=== PATIENT | male | born 1965 | race Caucasian/White ===

== ENCOUNTER 2019-08-02 08:29 | Day surgery (SDC) | payer BC, SELFPAY ==
[2019-08-02 08:54] VITALS: BMI 32.1
[2019-08-02 08:59] VITALS: BP 122/76; PULSE 74; RESP 12; TEMP 37; O2SAT 96
[2019-08-02] MEDS: SODIUM CHLORIDE 0.9% 1,000 ML 200 ML IV (09:09)
--- NOTE | 2019-08-02 09:41 | PM.HP.1 ---
History of Present Illness History of Present Illness Date Patient Seen: 08/02/19 Time Patient Seen: 09:41 Chief complaint: [id number] Narrative: The patient is a gentleman here for a screening colonoscopy. His last exam was 5 years ago. His personal history of polyps. Patient History Medical History Hyperlipidemia (Acute) Surgical History H/O umbilical hernia repair (Acute) History of appendectomy (Acute) Family & Social History Social History: household members spouse Tobacco & Substance use: Smoking Status Never smoker alcohol intake current alcohol intake frequency 0-2 drinks per day Substance Use Type does not use Meds Home Medications and Allergies Home Medications Medication Instructions Recorded Confirmed Type No Known Home Medications 08/02/19 08/02/19 History Allergies Allergy/AdvReac Type Severity Reaction Status Date / Time oxycodone AdvReac Severe ITCHING Verified 08/02/19 08:52 Review of Systems Review of Systems ROS: Yes All systems reviewed with the patient and are negative except as otherwise documented Exam Vital Signs (past 8 hours): - 08/02/19 08:59 Temperature 98.6 F Pulse Rate 74 Respiratory Rate 12 Blood Pressure 122/76 Pulse Oximetry 96 Oxygen Delivery Method Room Air Narrative Exam Narrative: Pleasant cooperative patient no apparent distress. Lungs are clear to auscultation. No rales or rhonchi. Heart regular rate and rhythm no murmur gallop. Abdomen is soft nontender without mass. No obvious hernias. Patient is alert and oriented x3. Assessment & Plan Assessment & Plan narrative: The patient for a screening colonoscopy. I have discussed the procedure with them. Risks of bleeding, perforation which would necessitate major operation, failure to find remove all lesions, the potential tattoo were all discussed. All questions were answered. They wished to proceed.
--- NOTE | 2019-08-02 09:49 | PM.PREOP ---
Pre-operative Note Interval Note History & Physical reviewed/Exam performed by Physician: Yes Changes to H&P: No ASA Class (for procedural sedation): I
[2019-08-02] MEDS: fentaNYL 250 MCG/5 ML INJ IV (10:21)
[2019-08-02] MEDS: MIDAZOLAM 5 MG/5 ML VIAL IV (10:21)
--- NOTE | 2019-08-02 10:26 | PM.OP.ENDO ---
Operative Date/Time/Diagnoses Date of procedure: 08/02/19 Time of procedure: 10:26 Pre-op diagnosis: Screening exam. Last exam 7 years ago. Per still history of polyps Post-op diagnosis: same (Sigmoid diverticulosis) Procedure & Clinicians Study performed: Colonoscopy Same procedure as scheduled: Yes Indications: Screening Surgeon: Kaz Lawrence Procedure Notes SCOAP/Timeout: Performed Procedure in detail: The patient was placed in the left lateral decubitus position and underwent IV sedation directed by the surgeon consisting of fentanyl and Versed. Digital exam was remarkable for mild narrowing. Prostate is normal.. The scope was inserted and advanced through the rectum into the sigmoid, descending, transverse, and ascending colon. I noted a few scattered sigmoid diverticuli. The cecum was reached identified by the ileocecal valve and the appendiceal opening. The ileocecal valve was successfully cannulated. The terminal ileum was normal in appearance. The scope was gradually brought out. No Polyps were found. The scope ultimately was retroflexed in the rectum. The appearance was remarkable for hemorrhoids without ulceration. The scope was removed and the patient tolerated the procedure well. The prep was very good Scope withdrawal time: 7 minutes Sedation minutes: 22 Findings: diverticulosis and internal hemorrhoids Specimen(s): none sent Complications: none Post-procedure Recommendations: Colonscopy in 5 years (Due to history of polyps) Follow up: as needed Disposition: PACU
[2019-08-02 10:30] VITALS: BP 126/71; PULSE 96; RESP 18; TEMP 36.7; O2SAT 96
[2019-08-02 10:35] VITALS: PULSE 85; RESP 12; O2SAT 97
[2019-08-02 10:36] VITALS: BP 111/77
[2019-08-02 10:39] VITALS: BP 127/75; PULSE 81; RESP 12; O2SAT 97
[2019-08-02 10:44] VITALS: BP 117/83; PULSE 78; RESP 15; TEMP 36.8; O2SAT 98
== END 2019-08-02 11:00 | disposition home or self-care (01) ==
PROVIDERS: Referring Provider Specialist; Visit Provider Specialist
PROC: 0DJD8ZZ Inspection of Lower Intestinal Tract, Via Natural or Artificial Opening Endoscopic (ICD-10-PCS; CPT 45378; principal; 2019-08-02 09:45)
DX: Z12.11 Encounter for screening for malignant neoplasm of colon (principal); Z86.010 Personal history of colon polyps; K57.30 Diverticulosis of large intestine without perforation or abscess without bleeding; K64.8 Other hemorrhoids
CPT/HCPCS: 45378; 99152; J2250; J3010

== ENCOUNTER → 2024-04-11 15:40 | Outpatient (CLI) | payer BC, SELFPAY ==
--- NOTE | 2024-04-11 15:46 | DI.RAD.S_ITS ---
PROCEDURE: XR CALCANEOUS RT MIN 2V INDICATIONS: Achilles tendinitis, right leg TECHNIQUE: Spurring of the dorsal COMPARISON: May represent a remote avulsion fracture. FINDINGS: Bones: There is a 5 mm calcification posterior to the talus which may represent an old avulsion fracture. Small spur projects from the dorsal cortex of the talar neck. There is also spur from the anterior tibial plafond. This may predispose to anterior impingement ankle dorsiflexion Soft tissues: Mild plantar soft tissue swelling noted over the calcaneus IMPRESSION: Chronic findings as described Dictated by: Cliff Herrera M.D. on 04/12/2024 at 12:04 Approved by: Cliff Herrera M.D. on 04/12/2024 at 12:07
== END ==
PROVIDERS: Referring Provider Family Medicine; Visit Provider Family Medicine
DX: M76.61 Achilles tendinitis, right leg (principal)
CPT/HCPCS: 73650

== ENCOUNTER → 2024-05-09 18:44 | Outpatient (CLI) | payer BC, SELFPAY ==
--- NOTE | 2024-05-09 | DI.MRI.S_ITS ---
PROCEDURE: MR ANKLE RT WO CON INDICATIONS: RT ACHILLES TENDINITIS,INT DERANGEMENT LT KNEE TECHNIQUE: Noncontrast sagittal T1 spin echo and T2 fast spin echo with fat saturation, axial proton density fast spin echo and T2 fast spin echo with fat saturation, coronal T1 spin echo and T2 fast spin echo with fat saturation through the ankle/hindfoot. COMPARISON: [facility], CR, XR CALCANEOUS RT MIN 2V, 04/11/2024, 15:52. FINDINGS: Image quality: Excellent Tendons: Mild tenosynovitis of the posterior tibialis, and the flexor digitorum longus. The flexor hallucis longus tendon is unremarkable. The extensor tendons, are unremarkable. Longitudinal split tear of the peroneal brevis. The peroneal longus is unremarkable. Mild tendinosis of the distal Achilles tendon, with low grade interstitial tear at the lateral aspect of the calcaneus insertion. Mild soft tissue edema posterior to the distal Achilles tendon. No full-thickness rupture of the distal Achilles tendon. Ligaments: The anterior and the posterior tibiofibular ligament are intact. Partial-thickness tear of the anterior talofibular ligament, about the fibular insertion. The posterior talofibular ligament is intact. Prior sprain the calcaneofibular ligament. Mild sprain of the deep portion of the deltoid ligament. Sinus tarsi: No fibrosis Plantar fascia: Mild thickening of the central cord, suggestive of mild plantar fasciitis. Muscles: Normal in signal Bones: Mild chondral irregularity with underlying minimal subchondral marrow edema in the lateral talus dome, likely secondary to mild degenerative changes of the tibiotalar joint. No significant tibiotalar or posterior subtalar effusion. IMPRESSION: 1. Longitudinal split tear of the peroneal brevis. 2. Mild tendinosis of the distal Achilles tendon with low grade interstitial tear at the lateral aspect of the calcaneal insertion. 3. Partial-thickness tear of the anterior talofibular ligament. Additional prior sprain of the medial and lateral ankle ligaments. 4. Findings suggestive of mild plantar fasciitis. 5. Mild degenerative change of the tibiotalar joint with minimal subchondral marrow edema. Dictated by: Raina Smith M.D. on 05/11/2024 at 10:14 Approved by: Raina Smith M.D. on 05/11/2024 at 10:22
--- NOTE | 2024-05-09 | DI.MRI.S_ITS ---
PROCEDURE: MR KNEE LT WO CON INDICATIONS: RT ACHILLES TENDINITIS,INT DERANGEMENT LT KNEE TECHNIQUE: Noncontrast sagittal PD fast spin echo and T2 fast spin echo with fat saturation, sagittal 3-D FLASH with fat saturation; coronal T1 spin echo and PD fast spin echo with fat saturation, and axial PD fast spin echo with fat saturation through the knee. COMPARISON: [facility], MR, MR KNEE LEFT WITHOUT CONTRAST, 05/03/2023, 16:53. [facility], CR, XR KNEE 3 VIEWS LEFT, 02/27/2023, 15:57. FINDINGS: Image quality: Excellent. Bones: Mild marrow edema and subchondral cyst formation is present at the anterior and mid weight-bearing medial compartment (12/18; 03/31). The bone marrow signal is otherwise normal. There is no acute fracture or dislocation. Joints: There is a small knee joint effusion. There is mild knee osteoarthritis, predominantly in the medial and patellofemoral compartments. Lunsford's cyst: Small Lunsford's cyst. Menisci: Compared to 05/03/2023, there has been interval increase in degeneration and tearing of a complex medial meniscal tear involving the body and posterior horn (03/27-). There is 4 mm of remnant meniscal body extrusion into the medial gutter (04/01). The lateral meniscus is intact. The posterior root attachments are intact. Cruciate ligaments: The anterior cruciate ligament is normal. The posterior cruciate ligament is normal. Collateral ligaments: There is mild low signal thickening of the medial collateral ligament complex.. The lateral collateral ligament complex is normal. Popliteus Muscle/Tendon: The popliteus muscle and tendon are normal. Small multiloculated ganglion cysts are associated with the popliteus at the myotendinous junction (04/10; 11/01). Extensor mechanism: The quadriceps tendon is normal. The patellar tendon is normal. The medial and lateral patellar retinacular attachments are normal. Articular cartilage: There are multifocal areas of deep partial thickness and near full thickness chondral loss at the weight-bearing medial compartment (/8; 04/02). Partial-thickness chondral fissuring is present at the median patellar facet and lateral patellar facet (/9). Other: Mild prepatellar and infrapatellar subcutaneous edema. IMPRESSION: 1. Interval increase in degeneration and tearing of a pre-existing complex medial meniscal tear, with meniscal body extrusion. 2. Interval increase in mild knee osteoarthritis (predominantly medial compartment) with small joint effusion and associated articular cartilage defects. 3. Chronic MCL sprain. Dictated by: Fracisco Coleman M.D. on 05/11/2024 at 8:57 Approved by: Fracisco Coleman M.D. on 05/11/2024 at 9:39
== END ==
PROVIDERS: Referring Provider Orthopaedic Surgery Foot and Ankle Surgery; Visit Provider Orthopaedic Surgery Foot and Ankle Surgery
DX: M17.12 Unilateral primary osteoarthritis, left knee (principal); M25.462 Effusion, left knee; M71.22 Synovial cyst of popliteal space [Baker], left knee; S83.232A Complex tear of medial meniscus, current injury, left knee, initial encounter; M67.462 Ganglion, left knee; S83.412A Sprain of medial collateral ligament of left knee, initial encounter; M23.92 Unspecified internal derangement of left knee; M65.871 Other synovitis and tenosynovitis, right ankle and foot; M76.61 Achilles tendinitis, right leg; S96.811A Strain of other specified muscles and tendons at ankle and foot level, right foot, initial encounter; S93.491A Sprain of other ligament of right ankle, initial encounter
CPT/HCPCS: 73721

== ENCOUNTER → 2024-12-19 07:08 | Outpatient (CLI) | payer BC, SELFPAY ==
--- NOTE | 2024-12-19 07:09 | DI.MRI.S_ITS ---
PROCEDURE: MR ANKLE RT WO CON INDICATIONS: Posterior tibial tendinitis TECHNIQUE: Noncontrast sagittal T1 spin echo and T2 fast spin echo with fat saturation, axial proton density fast spin echo and T2 fast spin echo with fat saturation, coronal T1 spin echo and T2 fast spin echo with fat saturation through the ankle/hindfoot. COMPARISON: [facility], MR, MR ANKLE RT WO CON, 05/09/2024, 18:56. FINDINGS: Image quality: Excellent. Bones and joints: Postsurgical changes are noted in posterior calcaneus from prior Achilles tendon repair. Mild midfoot and hindfoot joint osteoarthritic changes are seen. No acute fracture or dislocation. 4 mm osteochondral injury involving lateral weight-bearing portion of talar dome is seen. Small tibiotalar joint effusion, no loose bodies. No hindfoot coalitions. No osteochondral injuries of the talar dome. No pathologic joint effusions. Medial structures: The posterior tibialis tendon is mildly thickened with small amount of fluid distending tendon sheath at the level of mid to distal talus and talonavicular joint. The flexor digitorum longus, and flexor hallucis longus tendons are intact. The posterior tibial neurovascular bundle appears normal within the tarsal tunnel, without extrinsic mass effect. The deltoid ligament and spring ligament are intact. Lateral structures: The anterior talofibular ligament is thickened. The calcaneofibular, and posterior talofibular ligaments appear intact. More superiorly, the anterior and posterior tibiofibular ligaments appear intact, as is the intermalleolar ligament. The tibiofibular syndesmosis is normal in width at 2 mm or less. The peroneus brevis tendon is intact. Mildly thickened peroneus longus tendon with intrasubstance T2 hyperintense signal at the level of distal calcaneus and cuboid is seen. The sinus tarsi demonstrates normal fatty signal, without edema, fibrosis, or cyst formation. Anterior structures: The tibialis anterior, extensor hallucis longus, and extensor digitorum longus tendons appear intact. The dorsal talonavicular ligament appears intact. Posterior and plantar structures: Markedly thickened distal Achilles tendon at its posterior calcaneal insertion with intrasubstance T2 hyperintense signal suggestive of tendinosis and low-grade intrasubstance partial-thickness tear. No Achilles tendon rupture. Medial and lateral bands of the plantar fascia are of normal thickness. No abductor digiti quinti muscle atrophy to suggest Farley neuropathy. IMPRESSION: 1. Postsurgical changes from prior Achilles tendon repair. Tendinosis and low- grade intrasubstance partial-thickness tear involving distal Achilles tendon at its posterior calcaneal insertion . No full-thickness Achilles tendon rupture. 2. Mild midfoot and hindfoot joint osteoarthritis. No fracture or dislocation. 4 mm osteochondral injury involving lateral weight-bearing portion of talar dome. Small joint effusion, no loose bodies. 3. Low-grade tenosynovitis involving posterior tibialis tendon at the level of mid to distal talus and talonavicular joint. 4. Tendinosis and low-grade intrasubstance partial-thickness tear involving peroneus longus tendon at the level of distal calcaneus and cuboid. 5. Low-grade ATFL sprain. Dictated by: Dion Dominguez M.D. on 12/19/2024 at 10:42 Approved by: Dion Dominguez M.D. on 12/19/2024 at 10:57
== END ==
LOC: MRI 07:09
PROVIDERS: Referring Provider Orthopaedic Surgery Foot and Ankle Surgery; Visit Provider Orthopaedic Surgery Foot and Ankle Surgery
DX: M76.821 Posterior tibial tendinitis, right leg (principal); S86.011A Strain of right Achilles tendon, initial encounter; S96.811A Strain of other specified muscles and tendons at ankle and foot level, right foot, initial encounter; S93.491A Sprain of other ligament of right ankle, initial encounter; M25.471 Effusion, right ankle; M19.071 Primary osteoarthritis, right ankle and foot; M65.871 Other synovitis and tenosynovitis, right ankle and foot
CPT/HCPCS: 73721

== ENCOUNTER 2025-06-09 10:31 | Emergency (ER) | payer BC, SELFPAY ==
[2025-06-09 10:42] VITALS: BP 194/104; PULSE 79; RESP 16; TEMP 36.7; O2SAT 98; BMI 33.2
--- NOTE | 2025-06-09 10:48 | DI.RAD.S_ITS ---
PROCEDURE: XR RIBS RT MIN 3V W CXR 1V INDICATIONS: pain TECHNIQUE: 2 views of the ribs were acquired, along with a single view chest. COMPARISON: None. FINDINGS: Surgical changes and devices: None. Bones and chest wall: No fractures or dislocations. No suspicious bony lesions. Overlying soft tissues appear unremarkable. Lungs and pleura: No pleural effusions or pneumothorax. Lungs appear clear. Mediastinum: Mediastinal contours appear normal. Heart size is normal. IMPRESSION: No displaced rib fracture or pneumothorax. Dictated by: Ayaan Still M.D. on 06/09/2025 at 10:15 Approved by: Ayaan Still M.D. on 06/09/2025 at 10:15
--- NOTE | 2025-06-09 10:50 | ED_ITS ---
HPI - Back Pain/Injury General Chief Complaint: Back Pain/Injury Stated Complaint: Severe back spasm Time Seen by Provider: 06/09/25 10:46 Source: patient History of Present Illness HPI Narrative: 59-year-old male had a violent cough 2 days ago presents with R sided back pain radiates across entire back unrelieved with meloxicam. Pt denies fever, chills, body ache, nausea, vomiting, sore throat, chest pain, shortness of breath. Other than what is stated 14 point review of system is negative. Related Data Previous Rx's ?Medication ?Instructions ?Recorded hydrocodone 5 mg-acetaminophen 325 1 tab PO Q4-6H PRN pain #20 tabs 06/09/25 mg tablet Allergies Allergy/AdvReac Type Severity Reaction Status Date / Time oxycodone AdvReac Severe ITCHING Verified 06/09/25 10:42 Review of Systems Review of Systems ROS Unobtainable: All systems reviewed & are unremarkable except as noted in HPI and below Patient History Medical History (Updated 06/09/25 @ 11:33 by Cliff Collier DO) Hyperlipidemia Surgical History History of appendectomy H/O umbilical hernia repair Social History household members: spouse Smoking Status: Never smoker alcohol intake: current Smoking Status: Never smoker alcohol intake frequency: 0-2 drinks per day Exam Narrative Exam Narrative: GENERAL: [59] year old patient appears stated age. Well-developed patient, in mild distress. HEAD: Atraumatic. Normocephalic. EYES: Pupils equal round and reactive. Extraocular motions intact. No scleral icterus. No injection or drainage. NECK: Trachea midline. Non tender CARDIOVASCULAR: Regular rate and rhythm without murmurs, gallops, or rubs. RESPIRATORY: Clear to auscultation. Breath sounds equal bilaterally. No wheezes, rales, or rhonchi. EXTREMITIES: No edema or joint tenderness. BACK: Nontender without deformity or crepitance. No flank tenderness. NEURO: AOx3. SKIN: No rash or erythema of visible areas Initial Vital Signs Initial Vital Signs: Vital Signs Temperature 98.1 F 06/09/25 10:42 Pulse Rate 79 06/09/25 10:42 Respiratory Rate 16 06/09/25 10:42 Blood Pressure 194/104 H 06/09/25 10:42 Pulse Oximetry 98 06/09/25 10:42 Oxygen Delivery Method Room Air 06/09/25 10:42 Course Orders Ordered: ED Orders 06/09/25 10:48 XR ribs RT min 3V w CXR1V Stat Discontinued Medications Hydrocodone Bitart/Acetaminophen (Hydrocodone/Acet 5/325 Tablet) 1 tab PO NOW ONE Stop: 06/09/25 10:50 Last Admin: 06/09/25 10:54 Dose: 1 tab Documented By: TOLU Ibuprofen (Ibuprofen 400 Mg Tablet) 800 mg PO NOW ONE Stop: 06/09/25 10:50 Last Admin: 06/09/25 10:54 Dose: 800 mg Documented By: TOLU Vital Signs Vital signs: Vital Signs - 8 hr 06/09/25 10:42 Temperature 98.1 F Pulse Rate 79 Respiratory Rate 16 Blood Pressure 194/104 H Pulse Oximetry 98 Oxygen Delivery Method Room Air MDM - Back Pain/Injury MDM Narrative Medical decision making narrative: All lab work, vital signs, nurse triage note, medication list, previous ER visits, and all imaging studies reviewed.CXr no acute process. Pt given norco and ibuprofen here. Differential diagnosis rib fracture contusion or thorax. DC home on [place] rx. Discharge Plan Departure Patient Disposition: Home Clinical Impression: Painful rib Instructions: DI for Rib Contusion Activity Restrictions/Additional Instructions: Return with new or worsening symptoms. Take medicines as directed. Follow up with PCP next week if no improvement in symptoms. Prescriptions: New hydrocodone-acetaminophen 5-325 mg tablet 1 tab PO Q4-6H PRN (Reason: pain) Qty: 20 0RF Stand Alone Forms: Patient Portal/API
[2025-06-09] MEDS: IBUPROFEN 400 MG TABLET 800 MG PO (10:54)
--- NOTE | 2025-06-09 11:41 | PC.NURSE ---
Pt has been seen, assessed and discharged by Dr. Collier. This RN performed DC VS and collected signature for DC paperwork.
[2025-06-09 11:43] VITALS: BP 168/108; PULSE 78; RESP 20; O2SAT 98
== END 2025-06-09 11:43 | disposition home or self-care (01) ==
PROVIDERS: Emergency Provider Family Medicine
DX: R07.89 Other chest pain (principal); M54.9 Dorsalgia, unspecified
CPT/HCPCS: 71101; 99283